=== PATIENT | male | born 1980 | race African-American/Black ===

== ENCOUNTER 2016-11-28 08:08 | Emergency (ER) | payer SELFPAY ==
[~2016-11-28] VITALS: Ht 182.9 cm; Wt 120.0 kg
[~2016-11-28 08:08] MED LIST: ALUM5LIQ PO
[2016-11-28 08:09] VITALS: BP 140/90; PULSE 92; RESP 20; TEMP 98.5; O2SAT 100
[2016-11-28] MEDS ORDERED: IBUP800T23 PO (08:26)
[2016-11-28] MEDS ORDERED: AMOX875T PO (08:26)
[2016-11-28] MEDS ORDERED: FLUT50SP EACH NARE (08:26)
--- NOTE | 2016-11-28 08:27 | PD ---
HPI Chief Complaint: Cold / Flu Symptoms Time Seen by Provider: 08:21 Travel History International Travel<30 days: No Contact w/Intl Traveler<30days: No Traveled to known affect area: No History of Present Illness HPI Patient is a 36-year-old male presents to emergency department for evaluation of nasal congestion and cough. Patient reports subjective fevers, he is stating that he felt hot last night. He has not taken his temperature. He denies any sore throat, nausea, vomiting, abdominal pain, chest pain, shortness of breath, headaches. Reports that the symptoms started last night. He has not taken any ibuprofen or acetaminophen today. [facility] Past Medical History Medical History: Denies Significant Hx Blood Disorders: No Cancer: No Cardiovascular Problems: No Chemotherapy: No Endocrine: No Genitourinary: No Immune Disorder: No Musculoskeletal: No Neurologic: No Psychiatric: No Reproductive: No Respiratory: No Radiation Therapy: No Past Surgical History AICD: No Arteriovenous Shunt: No Insulin Pump: No Joint Replacement: No Pacemaker: No Other Surgery: Yes (LT HAND REPAIR) Social History Alcohol Use: No Tobacco Use: No Substance Use: No Allergies-Medications (Allergen,Severity, Reaction): Coded Allergies: No Known Allergies (Verified , 11/28/16) Reported Meds & Prescriptions Reported Meds & Active Scripts Active No Active Prescriptions or Reported Medications Review of Systems Except as stated in HPI: all other systems reviewed are Neg General / Constitutional: No: Fever, Chills HENT: Positive: Rhinitis, Congestion, No: Headaches Cardiovascular: No: Chest Pain or Discomfort Respiratory: Positive: Cough (dry nonproductive), No: Shortness of Breath Gastrointestinal: No: Nausea, Abdominal Pain Musculoskeletal: Positive: Myalgias Physical Exam Narrative GENERAL: Well-nourished, well-developed patient. SKIN: Warm and dry. HEAD: Normocephalic. EYES: No scleral icterus. No injection or drainage. ENT: Mucosa pink and moist. No erythema or exudates. No uvular edema. No uvular , palatal, or tonsillar deviation. Airway patent. Nasal turbinates appear normal without nasal blood, purulent drainage or septal hematoma. Posterior pharynx with cobblestoning appearance. NECK: Supple, trachea midline. No JVD or lymphadenopathy. CARDIOVASCULAR: Regular rate and rhythm without murmurs, gallops, or rubs. RESPIRATORY: Breath sounds equal bilaterally. No accessory muscle use. GASTROINTESTINAL: Abdomen soft, non-tender, nondistended. MUSCULOSKELETAL: No cyanosis, or edema. BACK: Nontender without obvious deformity. No CVA tenderness. Data Data Last Documented VS Vital Signs Date Time Temp Pulse Resp B/P Pulse Ox O2 Delivery O2 Flow Rate FiO2 11/28/16 08:20 20 11/28/16 08:09 98.5 92 140/90 100 Room Air MDM Medical Decision Making Medical Screen Exam Complete: Yes Emergency Medical Condition: Yes Interpretation(s) Vital Signs Date Time Temp Pulse Resp B/P Pulse Ox O2 Delivery O2 Flow Rate FiO2 11/28/16 08:09 98.5 92 20 140/90 100 Room Air Differential Diagnosis Viral URI versus bronchitis versus influenza versus other Narrative Course Patient is a 36-year-old male presenting to the emergency for evaluation of nasal congestion and a dry, nonproductive cough that started last night. Physical examination is unremarkable other than cobblestone appearance to posterior pharynx. Patient was advised to trial [id number] Sudafed or Mucinex DM, and fluticasone nasal spray and use as directed. He was encouraged to continue symptom management. He was advised that he can expect cold symptoms last 5-7 days. He will be provided with a backup prescription for an antibiotic however he was strongly encouraged to avoid using it or filling it for at least the next 4-5 days. He was encouraged to return to emergency department for any new or worsening symptoms. Patient verbalized understanding of these instructions. Patient stable for discharge. Diagnosis Primary Impression: Viral URI with cough Referrals: Primary Care Physician Patient Instructions: General Instructions, Viral Syndrome (ED) Departure Forms: Tests/Procedures, Work Release Enter return to work date: Nov 30, 2016 Additional Instructions: Obtain [id number] Sudafed for nasal decongestant and use as directed Continue symptom management Increase oral fluid intake Ibuprofen or acetaminophen as needed and as directed for pain or fevers Return to emergency department for any new or worsening symptoms Follow-up with your primary doctor Med/Other Pt SpecificInfo: Prescription(s) given Scripts Ibuprofen 800 Mg [id number] Mg PO Q8H PRN (PAIN SCALE 0-3 OR TEMP> 100.5F) 10 Days Ref 0 Prov:Soumya Lester 11/28/16 Amoxicillin 875 Mg [id number] Mg PO BID 10 Days Ref 0 Prov:Soumya Lester 11/28/16 Fluticasone Nasal Sublimity 50 Mcg/Act [id number] Mcg EACH NARE BID #1 BOTTLE Ref 0 50 mcg/spray Prov:Soumya Lester 11/28/16 Disposition: 01 DISCHARGE HOME Condition: Stable Soumya Lester Nov 28, 2016 08:27
== END 2016-11-28 08:37 | disposition home or self-care (01) ==
LOC: NEPB 08:08
DX: R05 Cough (principal); J06.9 Acute upper respiratory infection, unspecified
CPT/HCPCS: 99283

== ENCOUNTER 2017-01-17 12:35 | Emergency (ER) | payer SELFPAY ==
[~2017-01-17] VITALS: Ht 182.9 cm; Wt 118.0 kg
[~2017-01-17 12:35] MED LIST changes: -ALUM5LIQ PO; +AMOX875T PO; +FLUT50SP EACH NARE; +IBUP800T23 PO
[2017-01-17 12:39] VITALS: BP 153/78; PULSE 98; RESP 18; TEMP 98.8; O2SAT 98
--- NOTE | 2017-01-17 12:49 | PD ---
Physical Exam Time Seen by Provider: 12:47 Narrative 36yo M c/o vomiting and epigastric abd pain since this morning. Denies fever, Diarrhea, hematemesis. VS reviewed. Patient seen in triage. Awaiting bed placement. Data Data Last Documented VS Vital Signs Date Time Temp Pulse Resp B/P Pulse Ox O2 Delivery O2 Flow Rate FiO2 01/17/17 12:39 98.8 98 18 153/78 98 MDM Supervised Visit with CHAN: Kayleen Vidal January 17, 2017 12:49
--- NOTE | 2017-01-17 13:43 | PD ---
HPI Chief Complaint: GI Complaint Time Seen by Provider: 13:36 Travel History International Travel<30 days: No Contact w/Intl Traveler<30days: No Traveled to known affect area: No History of Present Illness HPI This is a 36-year-old male who denies any significant past medical history. He presents for evaluation of one day duration of nausea and vomiting. Symptoms started this morning. Reports 2 episodes of nonbloody emesis. He denies any abdominal pain, diarrhea, fevers, flank pain, dysuria, headache, upper respiratory symptoms. He is concerned that he may have a "stomach bug". He reports that yesterday he ate some [employer] fast food and also ate at a barbecue place and reports that he threw up some of his [employer] today. Denies sick contacts, recent travel. No other complaints. PFSH Past Medical History Blood Disorders: No Cancer: No Cardiovascular Problems: No Chemotherapy: No Endocrine: No Genitourinary: No Immune Disorder: No Musculoskeletal: No Neurologic: No Psychiatric: No Reproductive: No Respiratory: No Radiation Therapy: No Past Surgical History AICD: No Arteriovenous Shunt: No Insulin Pump: No Joint Replacement: No Pacemaker: No Other Surgery: Yes (LT HAND REPAIR) Social History Alcohol Use: No Tobacco Use: No Substance Use: No Allergies-Medications (Allergen,Severity, Reaction): Coded Allergies: No Known Allergies (Verified , 01/17/17) Reported Meds & Prescriptions Reported Meds & Active Scripts Active Zofran (Ondansetron HCl) 4 Mg Tab 4 Mg PO Q6HR PRN Review of Systems Except as stated in HPI: all other systems reviewed are Neg Physical Exam Narrative GENERAL: Well-developed well-nourished male in no acute distress SKIN: Warm and dry. HEAD: Atraumatic. Normocephalic. EYES: Pupils equal and round. No scleral icterus. No injection or drainage. ENT: No nasal bleeding or discharge. Mucous membranes pink and moist. NECK: Trachea midline. No JVD. CARDIOVASCULAR: Regular rate and rhythm. No murmur appreciated. RESPIRATORY: No accessory muscle use. Clear to auscultation. Breath sounds equal bilaterally. GASTROINTESTINAL: Abdomen soft, non-tender, nondistended. Hepatic and splenic margins not palpable. MUSCULOSKELETAL: No obvious deformities. No edema. No CVA tenderness. NEUROLOGICAL: Awake and alert. No obvious cranial nerve deficits. Motor grossly within normal limits. Normal speech. PSYCHIATRIC: Appropriate mood and affect; insight and judgment normal. Data Data Last Documented VS Vital Signs Date Time Temp Pulse Resp B/P Pulse Ox O2 Delivery O2 Flow Rate FiO2 01/17/17 13:45 18 01/17/17 12:39 98.8 98 153/78 98 Orders Ondansetron Odt (Zofran Odt) (01/17/17 13:45) Oral Rehydration (01/17/17 13:40) [facility] [place] Medical Decision Making Medical Screen Exam Complete: Yes Emergency Medical Condition: Yes Medical Record Reviewed: Yes Differential Diagnosis Gastroenteritisviral versus bacterial, gastritis, biliary colic, electrolyte abnormality, dehydration Narrative Course 36-year-old male presents with a one-day history of nausea, vomiting. His abdomen is soft and nontender. He appears well. Discussed with the patient performing basic lab work including CBC, CMP and providing him with IV fluids and Zofran however he is declining any sort of IV based intervention at this time. He does appear well and I suspect a mild viral gastroenteritis. We'll treat him with sublingual Zofran, oral challenge. He will be monitored closely. 1435: Upon reexamination the patient is feeling significantly improved, able to drink fluids, and is requesting discharge. He is stable for discharge with oral Zofran. Diagnosis Primary Impression: Gastroenteritis Departure Forms: Tests/Procedures, Work Release Enter return to work date: January 19, 2017 Additional Instructions: Zofran for nausea. Slowly advance diet. Return for any acutely new or worsening symptoms. Med/Other Pt SpecificInfo: Prescription(s) given Scripts Ondansetron (Zofran)4 Mg Tab4 Mg PO Q6HR PRN (NAUSEA OR VOMITING) #20 TAB Ref 0 Prov:Radha Pavon MD 01/17/17 Disposition: 01 DISCHARGE HOME Condition: Stable Garry Phelps January 17, 2017 13:43
[2017-01-17] MEDS ORDERED: ONDANSETRON ODT 4 MG TAB PO ONE (13:45)
[2017-01-17] MEDS ORDERED: ZOFR4TAB PO (14:40)
== END 2017-01-17 15:11 | disposition home or self-care (01) ==
LOC: NEPD 12:35
DX: K52.9 Noninfective gastroenteritis and colitis, unspecified (principal)
CPT/HCPCS: 99283